=== PATIENT | female | born 1965 | race Caucasian/White ===

== ENCOUNTER 2021-08-20 15:34 | Emergency (ER) | payer OTHER ==
[~2021-08-20] VITALS: Ht 157.5 cm; Wt 63.5 kg
--- NOTE | 2021-08-20 15:50 | NUR ---
The patient bib caregiver for R buttocks abscess 07/25 ps. Will continue to monitor the patient.
--- NOTE | 2021-08-20 16:03 | NUR ---
I/D DONE BY LIS RODRIGUEZ
[2021-08-20] MEDS ORDERED: SULF1TAB48 PO (16:16)
[2021-08-20] MEDS ORDERED: IBUP-1955 PO (16:16)
[2021-08-20] MEDS ORDERED: CEPH500C2 PO (16:16)
[2021-08-20] MEDS: LIDOCAINE 1% INJ 50 ML MDV IJ ONE (16:19)
[2021-08-20 17:05] VITALS: BP 126/72
--- NOTE | 2021-08-20 17:05 | NUR ---
Patient discharged to home in stable condition. Written and verbal after care instructions given. Patient verbalizes understanding of instruction.
== END 2021-08-20 17:06 | disposition home or self-care (01) ==
LOC: ER 15:43
DX: L02.31 Cutaneous abscess of buttock (principal); F41.9 Anxiety disorder, unspecified; Z86.69 Personal history of other diseases of the nervous system and sense organs; Z88.0 Allergy status to penicillin; Z79.899 Other long term (current) drug therapy
CPT/HCPCS: 10060; 76882; 99284; A6403; A6407

== ENCOUNTER 2024-02-04 00:49 | Emergency (ER) | payer OTHER ==
[~2024-02-04] VITALS: Ht 157.5 cm; Wt 59.0 kg
[~2024-02-04 00:49] MED LIST: CEPH500C2 PO; IBUP-1955 PO; SULF1TAB48 PO
[2024-02-04 02:16] VITALS: BP 129/80; TEMP 97.8
[2024-02-04] MEDS ORDERED: DOXY100C2 PO (02:20)
[2024-02-04] MEDS ORDERED: DOXYCYCLINE HYCLATE (100 MG) 100 MG TABLET ONE (02:25)
[2024-02-04] MEDS: DOXYCYCLINE HYCLATE (100 MG) 100 MG TABLET PO ONE (02:29)
[2024-02-04 02:32] VITALS: O2SAT 98
== END 2024-02-04 02:33 | disposition home or self-care (01) ==
LOC: ER 00:51
DX: S50.862A Insect bite (nonvenomous) of left forearm, initial encounter (principal); L03.114 Cellulitis of left upper limb; I10 Essential (primary) hypertension; F41.9 Anxiety disorder, unspecified; Z86.69 Personal history of other diseases of the nervous system and sense organs; Z88.0 Allergy status to penicillin; W57.XXXA Bitten or stung by nonvenomous insect and other nonvenomous arthropods, initial encounter; Y93.89 Activity, other specified; Y92.89 Other specified places as the place of occurrence of the external cause; Y99.8 Other external cause status

== ENCOUNTER 2024-03-21 18:17 | Emergency (ER) | payer OTHER ==
[~2024-03-21] VITALS: Ht 157.5 cm; Wt 59.4 kg
[~2024-03-21 18:17] MED LIST changes: +DOXY100C2 PO
[2024-03-21 18:32] VITALS: BP 153/72; TEMP 98.3; O2SAT 99
== END 2024-03-21 21:38 | disposition left against medical advice (07) ==
LOC: ER 18:20
DX: L08.9 Local infection of the skin and subcutaneous tissue, unspecified (principal); Z53.21 Procedure and treatment not carried out due to patient leaving prior to being seen by health care provider